=== PATIENT | male | born 1965 | race Caucasian/White ===

== ENCOUNTER 2018-06-18 11:35 | Inpatient (IN) | payer OTHER ==
[~2018-06-18] VITALS: Ht 177.8 cm; Wt 93.0 kg
[2018-06-18 11:41] VITALS: Ht 177.8 cm; Wt 93.0 kg
[2018-06-18 12:11] LABS: BASOPHIL % 0.3 % (0-2); PLATELET COUNT 226 x10^3mcL (130-400)
[2018-06-18 12:14] LABS: RED CELL DISTRIBUTION WIDTH 15.8 % (11.5-14.5)
[2018-06-18 12:22] LABS: CALCIUM 8.8 mg/dL (8.5-10.1); CARBON DIOXIDE 32.9 mmol/L (21-32); CHLORIDE SERUM 99 mmol/L (98-107); GFR1 > 60 mL/min; GLUCOSE SERUM 138 mg/dL (74-106); POTASSIUM SERUM 4.2 mmol/L (3.5-5.1); SODIUM SERUM 137 mmol/L (136-145)
[2018-06-18 12:26] LABS: ALKALINE PHOSPHATASE 101 U/L (46-116); ALT/SGPT 39 U/L (16-63); AST/SGOT 27 U/L (15-37); BILIRUBIN TOTAL 0.86 mg/dL (0.20-1.00); LIPASE 170 IU/L (73-393)
[2018-06-18 12:34] LABS: TOTAL PROTEIN, SERUM 8.7 g/dL (6.4-8.2)
[2018-06-18 16:22] LABS: UA SPECIFIC GRAVITY 1.025 (1.005-1.035); microscopic required? YES; urine erythrocyte TRACE (NEGATIVE)
[2018-06-18 16:27] LABS: CHOLESTEROL/HDL RATIO 4.3; PHOSPHOROUS 3.1 mg/dL (2.5-4.9)
[2018-06-18 17:15] VITALS: BP 138/95
[2018-06-18 20:55] VITALS: BP 138/82
[2018-06-19 05:26] VITALS: BP 134/78
[2018-06-19 06:46] LABS: CARBON DIOXIDE 30.4 mmol/L (21-32); CHLORIDE SERUM 102 mmol/L (98-107); GFR1 > 60 mL/min; GLUCOSE SERUM 103 mg/dL (74-106); MAGNESIUM 2.1 mg/dL (1.8-2.4); PHOSPHOROUS 2.2 mg/dL (2.5-4.9); POTASSIUM SERUM 4.5 mmol/L (3.5-5.1); SODIUM SERUM 138 mmol/L (136-145)
[2018-06-19 06:48] LABS: BASOPHIL % 0.1 % (0-2); PLATELET COUNT 192 x10^3mcL (130-400)
[2018-06-19 07:52] LABS: RED CELL DISTRIBUTION WIDTH 15.8 % (11.5-14.5)
[2018-06-19 08:23] VITALS: BP 129/71
[2018-06-19 12:34] VITALS: BP 113/62
[2018-06-19 16:25] VITALS: BP 126/76
[2018-06-19 19:44] VITALS: BP 129/73
[2018-06-20 01:18] VITALS: BP 129/73
[2018-06-20 04:58] VITALS: BP 110/66
[2018-06-20 06:29] LABS: BASOPHIL % 0.1 % (0-2); PLATELET COUNT 204 x10^3mcL (130-400)
[2018-06-20 06:42] LABS: RED CELL DISTRIBUTION WIDTH 15.6 % (11.5-14.5)
[2018-06-20 06:47] LABS: CALCIUM 8.2 mg/dL (8.5-10.1); CARBON DIOXIDE 31.7 mmol/L (21-32); CHLORIDE SERUM 104 mmol/L (98-107); CREATININE SERUM 0.9 mg/dL (0.7-1.3); GFR1 > 60 mL/min; GLUCOSE SERUM 114 mg/dL (74-106); POTASSIUM SERUM 4.7 mmol/L (3.5-5.1); SODIUM SERUM 139 mmol/L (136-145)
[2018-06-20] MEDS ORDERED: LEVAQUIN750 MG PO (09:50)
[2018-06-20] MEDS ORDERED: GOOD SENSE OMEP20 MG PO (09:50)
[2018-06-20 10:02] VITALS: BP 110/66
[2018-06-20 10:04] VITALS: BP 95/53
[2018-06-20 12:56] VITALS: BP 115/73
== END 2018-06-20 14:04 | disposition home or self-care (01) | DRG 871 ==
LOC: ED 11:35 → MU 15:24 → DU 15:24
PROVIDERS: Emergency Medicine; Internal Medicine; ADMIT General Practice
DX: A41.9 Sepsis, unspecified organism (principal); J18.1 Lobar pneumonia, unspecified organism; N17.0 Acute kidney failure with tubular necrosis; K56.7 Ileus, unspecified; E86.0 Dehydration; E11.65 Type 2 diabetes mellitus with hyperglycemia; E78.5 Hyperlipidemia, unspecified; K21.9 Gastro-esophageal reflux disease without esophagitis; F17.210 Nicotine dependence, cigarettes, uncomplicated
CPT/HCPCS: 82962; 87804; C9113; J0456; J0696; J2270; J2405; J7030; J7050; J7620; Q0092

== ENCOUNTER 2018-06-22 19:33 | Inpatient (IN) | payer OTHER ==
[~2018-06-22] VITALS: Ht 177.8 cm; Wt 93.4 kg
[~2018-06-22 19:33] MED LIST: GOOD SENSE OMEP20 MG PO; LEVAQUIN750 MG PO
[2018-06-22 19:41] VITALS: Ht 177.8 cm; Wt 93.4 kg
--- NOTE | 2018-06-22 19:43 | NUR ---
EKG IN PROGRESS
[2018-06-22 20:05] LABS: BASOPHIL % 0.1 % (0-2); PLATELET COUNT 269 x10^3mcL (130-400)
--- NOTE | 2018-06-22 20:05 | NUR ---
X-RAY AT BEDSIDE
--- NOTE | 2018-06-22 20:08 | NUR ---
PT C/O 12/28 SHARP SHOOTING CHEST PAINS FOLLOWING COUGH X3 DAYS. PT REPORTS PRODUCTIVE COUGH W/ YELLOW PHLEGM. PT STS THAT HE WAS ADMITTED HERE TUESDAY FOR PNA AND "SOME KIND OF BOWEL OB", AND D/C'ED TUESDAY W/ UNK ABX, AND "SOME KIND OF MEDICINE FOR GAS". PT STS THAT HIS S/S HVE GOTTEN WORSE SINCE D/C. PT STS THAT TODAY THE SHOOTING CHEST PAIN FOLLOWING HIS COUGH GOT SO BAD THAT HE "HAD A FRIEND BRING NORCOS OVER, AND HE HAS BEEN CHEWING ON THEM ALL DAY". PT REPORTS COLD SWEATS AND SOB. PT REPORTS NO OTHER S/S. PT DENIES N/V/D, DENIES FEVER, DENIES SYNCOPE, DENIES BLURRED VISION. CRACKLES HEARD IN NICOLE BASES, BREATHING SHALLOW. PT PLACED ON 2L O2 VIA NC, SATURATING AT 96%. PT PLACED ON REGIONAL ACCOUNT DIRECTOR AND CONTINUOUS PULSE OX. WILL CONTINUE TO MONITOR.
[2018-06-22 20:12] LABS: CALCIUM 8.5 mg/dL (8.5-10.1); CARBON DIOXIDE 31.4 mmol/L (21-32); CHLORIDE SERUM 99 mmol/L (98-107); CREATININE SERUM 0.8 mg/dL (0.7-1.3); GFR1 > 60 mL/min; GLUCOSE SERUM 136 mg/dL (74-106); POTASSIUM SERUM 3.6 mmol/L (3.5-5.1); SODIUM SERUM 136 mmol/L (136-145)
[2018-06-22 20:17] LABS: ALKALINE PHOSPHATASE 92 U/L (46-116); ALT/SGPT 42 U/L (16-63); AST/SGOT 25 U/L (15-37); BILIRUBIN TOTAL 0.55 mg/dL (0.20-1.00); TOTAL PROTEIN, SERUM 7.7 g/dL (6.4-8.2)
[2018-06-22 20:21] LABS: ALBUMIN 2.9 g/dL (3.4-5.0)
--- NOTE | 2018-06-22 21:03 | NUR ---
MEDICATION ADMINISTERED PER MD ORDER
--- NOTE | 2018-06-22 22:07 | NUR ---
PT SITTING IN BED, HOB ELEVATED, BED IN LOW AND LOCKED POSITION, 2 BED RAILS UP. PT AWAKE AND ALERT. RESPS E/U. CALL LIGHT W/IN REACH. NAD NOTED
--- NOTE | 2018-06-22 22:08 | NUR ---
PT AWAKE AND ALERT, SITTING IN BED, HOB ELEVATED, 2 BED RAILS UP, BED IN LOW AND LOCKED POSITION. CALL LIGHT W/IN REACH. NAD NOTED
--- NOTE | 2018-06-22 22:20 | NUR ---
PT TAKEN TO CT VIA WHEELCHAIR
--- NOTE | 2018-06-22 23:08 | NUR ---
REPORT GIVEN TO CHIQUI HELLER
--- NOTE | 2018-06-22 23:19 | NUR ---
RECEIVED PT VIA W/C FROM E/D, ACCOMPANIED BY RN, TRANSPORTER, AND PT'S CHRISTY GUPTA. PT A/A/O X 4, CALM, COOPERATIVE. PT AMBULATED FROM W/C TO BED WITHOUT GAIT OR BALANCE IMPAIRMENT. BUL/BLL COARSE CRACKLES, CHEST RISING EVENLY, R/A, 97%, PRODUCTIVE COUGH (WHITE, FOAMY SPUTUM, MODERATE AMOUNT), C/O CHEST PAIN 7/10 RADIATING FROM CHEST TO RIGHT SHOULDER, INTERMITTENT 2/2 COUGHING, SHARP, RELIEVED BY REST AND MEDICATION. ABD FIRM, DISTENDED, NORMOACTIVE BOWEL SOUNDS AND TYMPANY UPON PERCUSSION X 4 QUADS, LAST BM 06/21/18, DIARRHEA, C/O SHARP, INTERMITTENT RUQ PAIN 7/10, EXACERBATED BY COUGHING, RELIEVED BY REST AND MEDICATION. VOIDS W/ HESITANCY. IV SITE RAC 20G, CDI. ORIENTED PT AND FIANCEE TO ROOM, BED CONTROLS, CALL LIGHT SYSTEM. SIDE RAILS UP X 2, BED IN LOW POSITION. WILL ENDORSE TO PNIA DOOLEY.
[2018-06-22 23:38] VITALS: BP 137/78
--- NOTE | 2018-06-22 23:46 | NUR ---
C/O PAIN TO RIGHT UPPER QUADRANT, NORCO 1 TAB PO GIVEN PRESCRIBED. WILL CONTINUE TO MONITOR.
[2018-06-23 00:01] LABS: MAGNESIUM 2.1 mg/dL (1.8-2.4); PHOSPHOROUS 3.3 mg/dL (2.5-4.9)
[2018-06-23 00:02] LABS: CHOLESTEROL/HDL RATIO 5.7
--- NOTE | 2018-06-23 00:06 | NUR ---
ADMISSION ORDERS CARRIED OUT,NS STARTED INFUSING AT 100ML/HR TO RAC. SPECIMEN COLLECTED FOR UA. WILL CONTINUE TO MONITOR.
[2018-06-23 00:36] LABS: UA SPECIFIC GRAVITY >=1.030 (1.005-1.035); microscopic required? YES; urine erythrocyte NEGATIVE (NEGATIVE)
[2018-06-23 00:46] LABS: T3 TOTAL 0.62 ng/mL
--- NOTE | 2018-06-23 01:36 | NUR ---
PATIENT C/O COUGH, ROBITUSSIN SYRUP GIVEN PRESCRIBED. WILL CONTINUE TO MONITOR.
[2018-06-23 01:47] LABS: FREE T4 0.72 ng/dL (0.76-1.46)
[2018-06-23 01:50] LABS: FREE THYROXINE INDEX 1.6 ug/dL (1.4-4.5); T4(THYROXINE) 4.6 ug/dL (4.7-13.3)
[2018-06-23 05:32] VITALS: BP 115/64
--- NOTE | 2018-06-23 06:03 | NUR ---
SLEPT AT LONG INTERVALS, COUGH AT TIMES WITH WHITISH PHLEGM NOTED. ALL NEEDS ATTENDED.
[2018-06-23 06:59] LABS: CALCIUM 8.1 mg/dL (8.5-10.1); CARBON DIOXIDE 28.9 mmol/L (21-32); CHLORIDE SERUM 101 mmol/L (98-107); CREATININE SERUM 0.8 mg/dL (0.7-1.3); GFR1 > 60 mL/min; GLUCOSE SERUM 106 mg/dL (74-106); POTASSIUM SERUM 3.4 mmol/L (3.5-5.1); SODIUM SERUM 138 mmol/L (136-145)
[2018-06-23 07:33] LABS: BASOPHIL % 0.4 % (0-2); PLATELET COUNT 253 x10^3mcL (130-400); RED CELL DISTRIBUTION WIDTH 15.4 % (11.5-14.5)
--- NOTE | 2018-06-23 08:01 | NUR ---
RECEIVED PATIENT FROM PINA STAFFORD, DR GUTIÉRREZ IN ROOM TO SPEAK W PATIENT. PATTIENT PREPARED FOR SURGERY, CONSENTS SIGNED. STATES HE HAS RUQ PAIN 09/27. SURGERY TRANSPORTED TO SURGERY VIA [facility] AT 0745.
--- NOTE | 2018-06-23 11:27 | NUR ---
SURGERY REPORT GIVEN BY PINA FRANCISCO, WILL AWAIT PATIENT TO RETURN TO ROOM. FAMILY IN ROOM WAITING FOR PATIENT.
--- NOTE | 2018-06-23 11:45 | NUR ---
PATIENT RETURNED TO FLOOR W PINA FRANCISCO. DRESSING ON RUQ NOW SOILED, VITALS TAKEN. FAMILY AT BEDSIDE.
--- NOTE | 2018-06-23 13:14 | NUR ---
PATIENT IN BED RESTING, NO COMPLAINTS OF PAIN. NO SIGNS OF RESPIRATORY DISTRESS. DRESSINGS CONTINUE TO BE DRY. GIRLFRIEND AT BEDSIDE. CALL LIGHT IN REACH.
--- NOTE | 2018-06-23 14:29 | NUR ---
PATIENT IN BED RESTING. GIRLFRIEND AT BEDSIDE. NO COMPLAINTS OF PAIN AT THIS TIME. EXPLAINED TO PATIENT THAT WE WILL BE TAKING SOME STEPS TO GET HIM TOWARDS EATING SOLID FOOD. PATIENT VERBALIZES UNDERSTANDING. CALL LIGHT IN REACH WILL CONTINUE TO MONITOR.
--- NOTE | 2018-06-23 15:28 | NUR ---
PHYSICAL THERAPY NOTE PATIENT UNABLE TO PARTICIPATE WITH EVAL OR TREATMENT TODAY SECONDARY TO LETHARGIC AND FATIGUE. PATIENT RECEIVED MEDICAL PROCEDURE JUST A FEW HOURS EARILIER. PATIENT REQUEST TO HOLD TREATMENT AND EVAL FOR NEXT VISIT. NURSING AWARE. WILL FOLLOW UP.
--- NOTE | 2018-06-23 16:02 | NUR ---
PATIENT RESTING IN BED, GIRLFRIEND AT BEDSIDE. NO SIGNS OF DISTRESS, PAIN, OR RESPIRATORY DISTRESS. CALL LIGHT IN REACH AT THIS TIME.
[2018-06-23 16:26] VITALS: BP 94/65
--- NOTE | 2018-06-23 18:50 | NUR ---
PATIENT IN BED SLEEPING. NO SIGNS OF DISTRESS OR RESPIRATORY DISTRESS. JACQUELIN DRAINING, 35 ML SANGUIENOUS OUTPUT. SUTURES & DRESSINGS INTACT. WILL ENDORSE TO ONCOMING NURSE. CALL LIGHT IN REACH.
[2018-06-23 20:08] VITALS: BP 115/84
--- NOTE | 2018-06-23 20:08 | NUR ---
PT SEEN, ASLEEP AND APPEARS COMFORTABLE, EASILY AROUSABLE, BREATHING EVEN AND UNLABORED ON O2 2L VIA NC, LUNG SOUNDS CLEAR BUT DIMINISHED AT BASE, ON O2 2L VIA NC WITH NO RESP DISTRESS NOTED, IS ONLY REACH TO 500 ML, MEDSURG PT, DENIES CHEST PAIN, PULSES PALPABLE, NO EDEMA NOTED, ABLE TO MOVE ALL EXT, ABD FIRM AND DISTENDED WITH HYPOACTIVE BS, 04/ S/P OPEN KWAKU WIT INCISIONS TO RT SIDE ABD WITH ISLAND DRESSING IN PLACE, DRY BLOOD STAINED NOTED, JACQUELIN DRAINING SANGUINEOUS OUTPUT, ONE BANDAIDS NEAR UMBILICAL AREA, VOIDING FREELY WITH URINAL, MEDICATED WITH MORPHINE FOR INCISION PAIN WITH GOOD RELIEF, NO DISTRESS NOTED, WILL KEEP TO MONITOR.
--- NOTE | 2018-06-23 21:13 | NUR ---
PT C/O SEVERE PAIN TO ABD INCISION, NORCO 7.5/325 1 TAB VIA ORAL GIVEN.
--- NOTE | 2018-06-23 21:46 | NUR ---
PT'S GIRLFRIEND SANGEETHA CALLED AND REQUESTED FOR UPDATED, SPOKE WITH PT AND PER PT OKAY TO GIVE UPDATES DURING THE PHONE TO HIS GIRLFRIEND, SIMPLE UPADTES GIVEN.
--- NOTE | 2018-06-23 22:00 | NUR ---
PT ASLEEP AFTER MEDIACTED WITH NORCO PO, BREATHING EVEN AND UNLABORED ON ROOM AIR, NO DISTRESS NOTED, WILL KEEP TO MONITOR.
--- NOTE | 2018-06-24 00:08 | NUR ---
ROUNDS MADE, PT AWAKE AND C/O OF SEVERE PAIN TO INCISION SITE, MORPHINE 2MG VIA IVP ADMINISTERED, ABD BINDER IN PLACE, WILL CONTINUE TO MONITOR.
[2018-06-24 05:37] VITALS: BP 115/68
--- NOTE | 2018-06-24 06:14 | NUR ---
PT ASLEEP BUT EASILY AROUSABLE, SLEPT ON AND OFF WHOLE NIGHT DUE TO PAIN TO INCISION SITE, MEDIACTED BETWEEN MORPHINE AND NORCO WITH MOD RELIEF, DRESSING STILL NOTED WITH DRY BLOOD STAINED BUT NO ACTIVE BLEEDING OR DRAINAGE NOTED, TOTAL OUTPUT FROM JACQUELIN IS 20 SANGUINEOUS COLOR, PER PT HE ALREAY BURP AND (+) GAS BUT NO BM YET, NO DISTRESS NOTED, WILL KEEP TO MONITOR.
[2018-06-24 06:40] LABS: BASOPHIL % 0.3 % (0-2); PLATELET COUNT 293 x10^3mcL (130-400)
[2018-06-24 06:43] LABS: CALCIUM 7.9 mg/dL (8.5-10.1); CARBON DIOXIDE 28.5 mmol/L (21-32); CHLORIDE SERUM 97 mmol/L (98-107); CREATININE SERUM 0.8 mg/dL (0.7-1.3); GFR1 > 60 mL/min; GLUCOSE SERUM 137 mg/dL (74-106); POTASSIUM SERUM 3.7 mmol/L (3.5-5.1); SODIUM SERUM 134 mmol/L (136-145)
[2018-06-24 06:56] LABS: BILIRUBIN DIRECT 0.2 mg/dL (0.0-0.2); BILIRUBIN TOTAL 0.51 mg/dL (0.20-1.00); TOTAL PROTEIN, SERUM 6.6 g/dL (6.4-8.2)
[2018-06-24 06:57] LABS: ALBUMIN 2.3 g/dL (3.4-5.0)
--- NOTE | 2018-06-24 07:17 | NUR ---
BEDSIDE REPORT GIVEN TO DINH-RN, ALL QUESTIONS ANSWERED AND CONCERNS ADDRESSED.
[2018-06-24 07:44] VITALS: BP 126/77
--- NOTE | 2018-06-24 07:47 | NUR ---
RECEIVED PATIENT FROM PINA SAXENA. PATIENT CURRENTLY ASLEEP IN BED. NO SIGNS OF DISCOMFORT OR PAIN. WILL CONTINUE TO MONITOR FOR POST OP PAIN, DRESSING, AND ENCOURAGE PATIENT TO AMBULATE. CALL LIGHT IN REACH.
--- NOTE | 2018-06-24 08:04 | NUR ---
INSTRUCTED PATIENT W POST OP INSTRUCTIONS, MADE PATIENT AWARE OF COUGH/DEEP BREATHING, GAVE PILLOW TO SPLINT ABDOMEN, REINFORCED INCENTIVE SPIROMETER USAGE & EXPLAINED CONSEQUENCES OF BEING BEDRIDDEN. ALSO OFFERED PRN PAIN MEDICATION. PATIENT VERBALIZES UNDERSTANDING. CALL LIGHT IN REACH.
--- NOTE | 2018-06-24 08:49 | NUR ---
PATIENT W PT LIZA, WAS ABLE TO SIT & STAND AT BEDSIDE. POST OP TEACHING GIVEN TO PATIENT & FAMILY. DIRECTOR OF EARLY CHILDHOOD ELLEN ALSO IN ROOM TO ADJUST PAIN MEDICATION DOSAGES. DR PASTRANA ALSO IN ROOM TO LOOK AT JACQUELIN DRAINAGE & TO ADJUST DIET ORDER. PATIENT GIVEN PRN MORPHINE IVP FOR PAIN CONTROL. WILL CONTINUE TO MONITOR. CALL LIGHT IN REACH.
--- NOTE | 2018-06-24 10:10 | NUR ---
PATIENT REQUESTED COUGH SUPPRESSANT D/T ABDOMINAL INCISION PAIN. WILL RE-EVALUATE PATIENT NEEDED. CALL LIGHT IN REACH.
[2018-06-24 11:34] VITALS: BP 107/75
--- NOTE | 2018-06-24 11:45 | NUR ---
PRN DILAUDID WAS PREPARED FOR PATIENT, 1MG/1 ML VIAL WAS UNSUCCESFULLY DRAWN INTO SYRINGE AND WAS UNABLE TO WASTE IN WASTE CONTAINER. NEW VIAL 1MG/1ML VIAL WAS REMOVED FROM PYXIS.
--- NOTE | 2018-06-24 12:17 | NUR ---
PATIENT IN BED, IN AND OUT OF SLEEP. PRN DILAUDID IVP BEING ADMINISTERED. PATIENT IS AGITATED ABOUT PAIN CONTROL AND STATES THAT "IF THIS DOESN'T WORK, I'M GOING TO...". EXPLAINED TO PATIENT IT IS INAPPROPRIATE TO THREATEN STAFF, AND TO LET STAFF KNOW ABOUT HIS PAIN. CALL LIGHT IN REACH AT THE MOMENT. PATIENT EDUCATION PHAMPLETS GIVEN TO PATIENT & GIRLFRIEND.
--- NOTE | 2018-06-24 13:58 | NUR ---
PATIENT STATES THAT HE WOULD LIKE TO WALK AROUND. CALL TO PHYSICAL THERAPY FOR ASSISTANCE & FOR WALKER. NO ANSWER, LEFT. PATIENT STATES THAT HE WISHES HE DID NOT HAVE THE COUGH HE CONTINUES TO HAVE PAIN. PATIENT REFUSES ADDITONAL COUGH SUPPRESSANT. INFORCED USE OF IS & DEEP BREATHING. CALL LIGHT IN REACH.
--- NOTE | 2018-06-24 15:46 | NUR ---
JACQUELIN DRAINING REMOVED PER DR PASTRANA. TUBING INTACT, INCISION COVERED W ABD PAD. PRN DILAUDID IVP GIVEN TO PATIENT, WHO STILL HAS COMPLAINTS OF SEVERE PAIN. CALL LIGHT IN REACH, IS TEACHING REINFORCED. PATIENT VERBALIZES UNDERSTANDING.
[2018-06-24 16:03] VITALS: BP 126/76
--- NOTE | 2018-06-24 17:36 | NUR ---
PATIENT IN BED, GIRLFRIEND AT BEDSIDE. PATIENT COMPLAINING ABOUT EXCESS PHLEGM. NOTIFIED CURRICULUM AND INSTRUCTION DIRECTOR ELLEN FOR RESPIRATORY TREATMENT, ELLEN AWARE. WILL AWAIT ORDERS FOR RT. PATIENT NOTIFIED. ALSO ASKED FOR ADDITIONAL PRN PAIN MEDICATION, WILL GIVE PRN NORCO PO AT THIS TIME. CALL LIGHT IN REACH.
[2018-06-24 17:46] VITALS: BP 126/76
--- NOTE | 2018-06-24 18:28 | NUR ---
PATIENT RECEIVED BREATHING TREATMENT, STATES HE FEELS MUCH BETTER. WILL CONTINUE TO MONITOR & ENDORSE TO ONCOMING NURSE. CALL LIGHT IN REACH.
--- NOTE | 2018-06-24 20:01 | NUR ---
PT SEEN, ASLEEP AND APPEARS COMFORTABLE, EASILY AROUSABLE, BREATHING EVEN AND UNLABORED ON O2 2L VIA NC, LUNG SOUNDS CLEAR BUT DIMINISHED AT BASE, ON O2 2L VIA NC WITH NO RESP DISTRESS NOTED, IS ONLY REACH TO 500 ML, ON AND OFF COUGH, RT PROTOCOL, MEDSURG PT, DENIES CHEST PAIN, PULSES PALPABLE, NO EDEMA NOTED, ABLE TO MOVE ALL EXT BUT WITH GENERALIZED WEAKNESS, ABD FIRM AND DISTENDED WITH ACTIVE BS, 06/23 S/P OPEN KWAKU WITH INCISIONS TO RT SIDE ABD WITH ISLAND DRESSING AND ABD PAIN IN PLACE, DRY BLOOD STAINED NOTED, ABD BINDER IN PLACE, , ONE BANDAIDS NEAR UMBILICAL AREA, VOIDING FREELY WITH URINAL, NO DISTRESS NOTED, WILL KEEP TO MONITOR.
[2018-06-24 21:13] VITALS: BP 124/67
[2018-06-25 05:57] VITALS: BP 112/66
--- NOTE | 2018-06-25 06:30 | NUR ---
PT ASLEEP BUT EASILY AROUSABLE, SLEPT ON AND OFF WHOLE NIGHT, MEDICATED WITH DILAUDID 1MG VIA IVP X 2 FOR INCISION PAIN WITH GOOD RELIEF, DRESSING C/D/I, ABD BINDER IN PLACE, DR PASTRANA CALLED AND UPDATES GIVEN, NEW ORDER RECEIVED FOR MIRALAX PO BID, IVF INFUSING WELL, MORNING BLOOD SUGAR-113 MG/DL WITH NO RISS, NO DISTRESS NOTED, WILL KEEP TO MONITOR.
[2018-06-25 07:17] LABS: CALCIUM 8.2 mg/dL (8.5-10.1); CARBON DIOXIDE 31.1 mmol/L (21-32); CHLORIDE SERUM 97 mmol/L (98-107); CREATININE SERUM 0.8 mg/dL (0.7-1.3); GFR1 > 60 mL/min; GLUCOSE SERUM 120 mg/dL (74-106); POTASSIUM SERUM 3.6 mmol/L (3.5-5.1); SODIUM SERUM 135 mmol/L (136-145)
--- NOTE | 2018-06-25 07:18 | NUR ---
REPORT GIVEN TO DINH-PINA, ALL QUESTIONS ANSWERED AND CONCERNS ADDRESSED.
[2018-06-25 07:25] LABS: BASOPHIL % 0.4 % (0-2); PLATELET COUNT 309 x10^3mcL (130-400)
[2018-06-25 07:34] LABS: RED CELL DISTRIBUTION WIDTH 15.2 % (11.5-14.5)
--- NOTE | 2018-06-25 07:38 | NUR ---
RECEIVED PATIENT FROM PINA SAXENA. PATIENT CURRENTLY ASLEEP IN BED. NO SIGNS OF DISTRESS. WILL CONTINUE TO MONITOR FOR PAIN, & SOB. CALL LIGHT IN REACH.
[2018-06-25 09:05] VITALS: BP 111/70
[2018-06-25 09:21] LABS: ALBUMIN 2.3 g/dL (3.4-5.0); BILIRUBIN DIRECT 0.14 mg/dL (0.0-0.2); BILIRUBIN TOTAL 0.5 mg/dL (0.20-1.00); TOTAL PROTEIN, SERUM 6.8 g/dL (6.4-8.2)
--- NOTE | 2018-06-25 09:59 | NUR ---
DR PASTRANA IN TO SEE PATIENT. STATES HE WILL CHANGE PATIENTS DRESSING TOMORROW. AWARE OF JACQUELIN REMOVAL, ABD DRESSING CHANGED W SEROUS DRAINAGE. NO CHANGES IN DRESSING FROM PRIOR BORDER MARKINGS. PRN DILAUDID IVP FOR PAIN. CALL LIGHT IN REACH.
--- NOTE | 2018-06-25 11:20 | NUR ---
PATIENT IN BED, STATES HIS PAIN IS TOLERABLE. NO OTHER COMPLAINTS. ENFORCED USE OF INCENTIVE SPIROMETER, PATIENT COMPLIANT. ABLE TO TOLERATE SOLID FOOD. CLEAN WIPES GIVEN TO PATIENT, REQUESTED SHOWER. NOTIFIED PATIENT TO BRING IT UP W DR PASTRANA TOMORROW. CALL LIGHT IN REACH.
--- NOTE | 2018-06-25 12:52 | NUR ---
PATIENT STATES HIS PAIN HAS RETURNED. PRN NORCO PO GIVEN, PRN DILAUDID IVP NOT DUE. ABDOMINAL BINDER TIGHTENED, DRESSINGS CONTINUE TO BE CLEAN & DRY. CALL LIGHT IN REACH.
[2018-06-25 16:18] VITALS: BP 105/67
--- NOTE | 2018-06-25 16:45 | NUR ---
PATIENT STATES HIS PAIN IS RETURNING. NOW AT BEDSIDE. PRN DILAUDID IVP GIVEN. WILL CONTINUE TO MONITOR FOR PAIN. ABDOMINAL BINDER INTACT, DRESSINGS INTACT. CALL LIGHT IN REACH.
--- NOTE | 2018-06-25 18:20 | NUR ---
PATIENT STATES THAT HIS PAIN HAS RETURNED AND THAT HIS COUGH IS CAUSING HIM PAIN. MODERATE PHLEGM EXPELLED DURING COUGH. PRN DILAUDID & PRN NORCO ADMINISTERED RECENTLY. HR 65, BP 120/74, TEMP 98.2. RESPIRATORY THERAPY PHONED FOR CANDELARIA SAUL TREATMENT. WILL REEVALUATE PATIENT CONDITION, AND ENDORSE TO ONCOMING NURSE. CALL LIGHT IN REACH.
--- NOTE | 2018-06-25 19:33 | NUR ---
PT SEEN, ASLEEP AND APPEARS COMFORTABLE, EASILY AROUSABLE, BREATHING EVEN AND UNLABORED ON O2 2L VIA NC, LUNG SOUNDS CLEAR BUT DIMINISHED AT BASE, ON O2 2L VIA NC WITH NO RESP DISTRESS NOTED, IS ONLY REACH TO 500 ML, ON AND OFF COUGH, RT PROTOCOL, MEDSURG PT, DENIES CHEST PAIN, PULSES PALPABLE, NO EDEMA NOTED, ABLE TO MOVE ALL EXT BUT WITH GENERALIZED WEAKNESS, ABD FIRM AND DISTENDED WITH ACTIVE BS, 04 S/P OPEN KWAKU WITH INCISIONS TO RT SIDE ABD WITH ISLAND DRESSING AND ABD PAIN IN PLACE, DRY BLOOD STAINED NOTED, ABD BINDER IN PLACE, , ONE BANDAIDS NEAR UMBILICAL AREA, VOIDING FREELY WITH URINAL, NO DISTRESS NOTED, WILL KEEP TO MONITOR. (+) GAS AND BURP POST-OP. NO N&V NOTED WITH REG LIQUID DIET.
[2018-06-25 20:45] VITALS: BP 111/65
[2018-06-26 05:28] VITALS: BP 119/69
--- NOTE | 2018-06-26 06:01 | NUR ---
PT ASLEEP BUT EASILY AROUSABLE, SLEPT ON AND OFF WHOLE NIGHT, MEDICATED DILAUDID 1MG VIA IVP X 2 AND NORCO PO X 1 WITH GOOD RELIEF, BREATHING EVEN AND UNLABORED ON O2 2L VIA NC, ABLE TO STAND UP AT BEDSIDE WHILE VOIDING, MORNING BLOOD SUGAR-144 MG/DL WITH NO RISS, NO DISTRESS NOTED, WILL KEEP TO MONITOR.
[2018-06-26 06:41] LABS: CALCIUM 7.8 mg/dL (8.5-10.1); CARBON DIOXIDE 33.6 mmol/L (21-32); CHLORIDE SERUM 98 mmol/L (98-107); CREATININE SERUM 0.8 mg/dL (0.7-1.3); GFR1 > 60 mL/min; GLUCOSE SERUM 149 mg/dL (74-106); POTASSIUM SERUM 3.5 mmol/L (3.5-5.1); SODIUM SERUM 136 mmol/L (136-145)
[2018-06-26 07:06] LABS: BASOPHIL % 0.1 % (0-2); PLATELET COUNT 316 x10^3mcL (130-400)
--- NOTE | 2018-06-26 07:06 | NUR ---
BEDSIDE HANDOFF REPORT GIVEN TO GLYNN, ALL QUESTIONS ANSWERED AND CONCERNS ADDRESSED.
[2018-06-26 07:13] LABS: RED CELL DISTRIBUTION WIDTH 15.4 % (11.5-14.5)
--- NOTE | 2018-06-26 08:00 | NUR ---
SHIFT ASSESSMENT DONE. PATIENT A/A/OX4. DENIED CHEST PAIN. NO RESP DISTRESS. O2 SAT 95% ON RA. ABD ROUND/FIRM. 4TH DAY OF POST-OP OF OPEND CHOLECYSTECTOMY. STATED NO BM X 5 DAYS (LAST BM ON 06/21). PASSING GAS (+). TOLERATED REGULAR DIET. NO N/V. VOID FREELY. ENCOURAGE TO AMBULATE IN [address]. UPPER ABD INCISION W/ DRSG AND BAD BINDER. LOWER ABD INCISION OPENED TO AIR W/ LUANA INTACT. NO C/O PAIN NOW. IVF OF D5 1/2 NS 60CC/HR. IV SITE TO RAC INTACT. CALL LIGHT IN REACH.
[2018-06-26 09:29] VITALS: BP 125/70
--- NOTE | 2018-06-26 11:36 | NUR ---
DR. GUTIÉRREZ CAME TO SEE PATIENT. STRIPS TO INCISION REMOVED BY DR. GUTIÉRREZ. DRSG CHANGED BY DR. GUTIÉRREZ W/ DRY DRSG. LOWER ABD INCISION W/ LUANA INTACT. YEISON.
--- NOTE | 2018-06-26 15:08 | NUR ---
PHYSICAL THERAPY DAILY NOTES CO-SIGN All documentation done by the Money Room Supervisor for 06/26/18 has been reviewed. I agree with the documentation. Reviewed/Co-Signed by: Maranda Pinon PT Documentation Done by:JIM ALLISON [facility]
--- NOTE | 2018-06-26 15:13 | NUR ---
PATEINT DEMONESTRATED IND ON BED MOB, TRANSFER AND GAIT AT THIS TIME. GOAL MET. DISCHARGED FROM PHYSICAL THERAPY AND END TO NSG FOR ADLS NEEDS
--- NOTE | 2018-06-26 15:56 | NUR ---
PATIENT WALKED IN [address] X2; HAD BM X1.
--- NOTE | 2018-06-26 16:04 | NUR ---
REPORTED TO DR. GUTIÉRREZ WITH PATIENT'S KUB RESULT AND PATIENT HAD BM TODAY. PATIENT AMBULATED IN [address] X[address] DR. GUTIÉRREZ APPROVED TO DISCHARGE PATIENT TO HOME TODAY AND FOLLOW UP WITH HIM ON Tuesday. RAINA HUGHES, NOTIFIED.
[2018-06-26] MEDS ORDERED: KEFLEX500 M1 PO (16:44)
[2018-06-26] MEDS ORDERED: NORCO1 TA2 PO (16:45)
[2018-06-26] MEDS ORDERED: ROBL PO (16:45)
[2018-06-26 16:47] VITALS: BP 125/70
--- NOTE | 2018-06-26 17:55 | NUR ---
D/C TO HOME PER ORDER. INSTRUCTION GIVEN. IV D/C'D. OVER NEEDLE CATH INTACT. PHOTO TO INCISIONS TAKEN AND FILED. TEACHING OF INCISIONAL CARE AND DRSG CHANGE GIVEN TO PATIENT'S GIRL FRIEND. CONDITION STABLE.
--- NOTE | 2018-06-26 19:26 | NUR ---
RECEIVED ENDORSEMENT FROM MARICARMEN RN, PT'S ALONSO BY BEDSIDE; PT A/A/O X 4, CALM, COOPERATIVE. DENIES CHEST PAIN OR DISCOMFORT AT THIS TIME. NO ACUTE RESPIRATORY DISTRESS NOTED. ABD SOFT, ROUND, NON-TENDER, NORMOACTIVE BOWEL SOUNDS X 4 QUADS, LAST BM 06/26/18, SOFT. NO IV SITE AT THIS TIME. SIDE RAILS UP X 2, BED IN LOW POSITION, CALL LIGHT WITHIN REACH. WAITING FOR ALONSO'S DAUGHTER TO PICK PT UP. WILL CONTINUE TO MONITOR.
--- NOTE | 2018-06-26 19:38 | NUR ---
ALL ID BANDS REMOVED. PT DOES NOT HAVE IV SITE OR TELE MONITOR. PT TRANSPORTED TO [facility] VIA W/C, ACCOMPANIED BY ALONSO AND SHAWNA. PT A/A/O X 4, CALM, COOPERATIVE. DENIES CHEST PAIN OR DISCOMFORT AT THIS TIME. NO ACUTE RESPIRATORY DISTRESS NOTED.
== END 2018-06-26 19:47 | disposition home or self-care (01) | DRG 414 ==
LOC: ED 19:33 → MU 22:39
PROVIDERS: Emergency Medicine; Surgery; ADMIT Family Medicine
PROC: 0FJ44ZZ Inspection of Gallbladder, Percutaneous Endoscopic Approach (ICD-10-PCS; 2018-06-23)
PROC: 0FT40ZZ Resection of Gallbladder, Open Approach (ICD-10-PCS; principal; 2018-06-23 08:00)
DX: K80.00 Calculus of gallbladder with acute cholecystitis without obstruction (principal); N17.0 Acute kidney failure with tubular necrosis; E44.0 Moderate protein-calorie malnutrition; I10 Essential (primary) hypertension; E11.65 Type 2 diabetes mellitus with hyperglycemia; E66.9 Obesity, unspecified; Z88.1 Allergy status to other antibiotic agents; Z82.69 Family history of other diseases of the musculoskeletal system and connective tissue; Z87.891 Personal history of nicotine dependence; Z68.29 Body mass index [BMI] 29.0-29.9, adult
CPT/HCPCS: 82962; 83880; 84439; 87804; 94150; 97116-GP; 97530-GP; J0690; J1170; J1650; J2270; J2405; J2543; J3010; J3490; J7030; J7620; Q0092; Q9967

== ENCOUNTER 2018-11-26 20:31 | Emergency (ER) | payer SELFPAY ==
[~2018-11-26] VITALS: Ht 177.8 cm; Wt 97.5 kg
[~2018-11-26 20:31] MED LIST changes: +KEFLEX500 M1 PO; +NORCO1 TA2 PO; +ROBL PO
[2018-11-26 20:41] VITALS: Ht 177.8 cm; Wt 97.5 kg
[2018-11-26 21:16] LABS: BASOPHIL % 0.1 % (0-2); PLATELET COUNT 184 x10^3mcL (130-400)
[2018-11-26 21:17] LABS: RED CELL DISTRIBUTION WIDTH 17.1 % (11.5-14.5)
[2018-11-26 21:27] LABS: CALCIUM 8.1 mg/dL (8.5-10.1); CARBON DIOXIDE 31.6 mmol/L (21-32); CHLORIDE SERUM 104 mmol/L (98-107); CREATININE SERUM 1.1 mg/dL (0.7-1.3); GFR1 > 60 mL/min; GLUCOSE SERUM 132 mg/dL (74-106); POTASSIUM SERUM 3.9 mmol/L (3.5-5.1); SODIUM SERUM 141 mmol/L (136-145)
[2018-11-26 21:32] LABS: ALBUMIN 3.5 g/dL (3.4-5.0); ALKALINE PHOSPHATASE 93 U/L (46-116); ALT/SGPT 40 U/L (16-63); AST/SGOT 27 U/L (15-37); LIPASE 103 IU/L (73-393); TOTAL PROTEIN, SERUM 7.7 g/dL (6.4-8.2)
[2018-11-27 00:15] VITALS: BP 112/52
== END 2018-11-27 00:15 | disposition home or self-care (01) ==
LOC: ED 20:31
PROVIDERS: Emergency Medicine
DX: K57.90 Diverticulosis of intestine, part unspecified, without perforation or abscess without bleeding (principal); Z88.1 Allergy status to other antibiotic agents; Z90.49 Acquired absence of other specified parts of digestive tract
CPT/HCPCS: J2405